=== PATIENT | female | born 1990 | race African-American/Black ===

== ENCOUNTER 2016-12-09 16:12 | Emergency (ER) | payer MEDICAID ==
[~2016-12-09] VITALS: Ht 170.2 cm; Wt 62.6 kg
[2016-12-09 17:15] LABS: Basophils # (auto) 0 uL; Basophils % (auto) 0.2 % (0.0-2.0); Eosinophils # (auto) 0.4 uL; Eosinophils % (auto) 4.7 % (0.0-7.0); Hematocrit 36.1 % (36.0-46.0); Hemoglobin 11.7 g/dL (12.2-16.2); Lymphocytes # (auto) 2.5 uL; Lymphocytes % (auto) 32.2 % (10.0-50.0); Mean Corpuscular Hemoglobin 28.1 pg (28.0-32.0); Mean Corpuscular Hgb Conc. 32.4 g/dL (32.0-36.0); Mean Corpuscular Volume 86.6 fL (80.0-100.0); Mean Platelet Volume 7.4 fL (6.9-10.8); Monocytes # (auto) 0.5 uL; Monocytes % (auto) 7.1 % (0.0-12.0); Neutrophils # (auto) 4.3 uL; Neutrophils % (auto) 55.8 % (37.0-80.0); Platelet Count (auto) 251 10^3/uL (140-450); Red Cell Distribution Width 13.4 % (11.8-14.3); White Blood Cell 7.7 10^3/uL (4.4-10.8)
[2016-12-09 17:30] LABS: Albumin 3.8 g/dL (3.4-5.0); BUN/Creatinine Ratio 15.9; Calcium 8.9 mg/dL (8.5-10.1); Potassium 3.9 mmol/L (3.5-5.1)
[2016-12-09 17:31] LABS: Bilirubin, Total 0.2 mg/dL (0.2-1.0); Total Protein 7.4 g/dL (6.4-8.2)
[2016-12-09] MEDS ORDERED: SODIUM CHLORIDE 0.9% 1,000 ML IVB ONE (21:05)
[2016-12-09] MEDS ORDERED: ONDANSETRON HCL 4 MG/2 ML VIAL IV ONE (21:15)
[2016-12-09] MEDS ORDERED: HYDROmorphone HCL 2 MG/ML VL IV ONE (21:15)
[2016-12-09 21:58] LABS: Amylase 101 U/L (25-115)
[2016-12-09 21:59] LABS: INR 0.95 (0.9-1.15); Partial Thromboplastin Time 25.8 sec (22.64-33.71); Prothrombin Time 10.3 sec (9.37-12.3)
[2016-12-09 22:58] LABS: Urine Bilirubin Negative (Negative); Urine Blood 2+ /uL (Negative); Urine Color Yellow (Yellow); Urine Glucose Normal (Normal); Urine Ketone Negative (Negative); Urine Mucus FEW (None Seen); Urine Nitrite Negative (Negative); Urine RBC 1 /hpf (0 - 4); Urine Squamous Epithelial Cell FEW /hpf (<5); Urine Urobilinogen Normal (Negative)
[2016-12-10 02:12] VITALS: BP 124/82
== END 2016-12-10 02:11 | disposition home or self-care (01) ==
LOC: ER 16:21
DX: R10.2 Pelvic and perineal pain (principal); G43.909 Migraine, unspecified, not intractable, without status migrainosus; F17.210 Nicotine dependence, cigarettes, uncomplicated; Z91.013 Allergy to seafood; Z90.49 Acquired absence of other specified parts of digestive tract; Z98.51 Tubal ligation status
CPT/HCPCS: 36415; 76830; 76856; 80053; 81001; 81025; 82150; 83690; 85025; 85610; 85730; 96361; 96374; 96375; 99285; J1170; J2405; J7030

== ENCOUNTER 2017-10-09 06:55 | Emergency (ER) | payer MEDICAID ==
[~2017-10-09] VITALS: Ht 170.2 cm; Wt 72.6 kg
[2017-10-09 07:49] LABS: Urine Pregnacy Test Negative (Negative)
[2017-10-09 07:52] LABS: Urine Bacteria FEW /hpf (None Seen); Urine Blood 2+ /uL (Negative); Urine Specific Gravity 1.019 (1.001-1.035); Urine WBC 2 /hpf (0 - 5)
[2017-10-09 08:20] LABS: Amphetamine Screen, Urine NEGATIVE (NEGATIVE); Barbiturate Scree,Urine NEGATIVE (NEGATIVE); Benzodiazephine Screen, Urine NEGATIVE (NEGATIVE); Cannabinoid Screen, Urine NEGATIVE (NEGATIVE); Cocaine Screen, Urine NEGATIVE (NEGATIVE); Opiate Scree,Urine POSITIVE (NEGATIVE); Phencyclidine Screen, Urine NEGATIVE (NEGATIVE)
[2017-10-09 10:20] VITALS: BP 115/84
[2017-10-09] MEDS ORDERED: traMADol HCL 50 MG TAB PO ONE (11:15)
== END 2017-10-09 11:52 | disposition home or self-care (01) ==
LOC: ER 06:55
DX: S62.304A Unspecified fracture of fourth metacarpal bone, right hand, initial encounter for closed fracture (principal); S09.90XA Unspecified injury of head, initial encounter; F17.210 Nicotine dependence, cigarettes, uncomplicated; Z90.49 Acquired absence of other specified parts of digestive tract; Y04.0XXA Assault by unarmed brawl or fight, initial encounter; Y93.89 Activity, other specified; Y92.89 Other specified places as the place of occurrence of the external cause; Y99.8 Other external cause status
CPT/HCPCS: 29125; 70450; 72125; 73120; 80307; 81001; 81025

== ENCOUNTER 2018-12-28 13:08 | Emergency (ER) | payer MEDICAID ==
[~2018-12-28] VITALS: Ht 167.6 cm; Wt 72.6 kg
[2018-12-28 13:19] VITALS: BP 118/79
[2018-12-28] MEDS ORDERED: ACETAMINOPHEN 650 mg PER 20 mL UD PO ONE (13:30)
[2018-12-28] MEDS ORDERED: cefTRIAXone W LIDOCAINE 1 GM IM IM ONE (15:15)
[2018-12-28] MEDS ORDERED: cefTRIAXone SOD 1,000 MG VL ONE (15:30)
== END 2018-12-28 15:49 | disposition home or self-care (01) ==
LOC: ER 13:08
DX: J06.9 Acute upper respiratory infection, unspecified (principal); J02.9 Acute pharyngitis, unspecified; F17.210 Nicotine dependence, cigarettes, uncomplicated; Z98.51 Tubal ligation status
CPT/HCPCS: 96372; 99283; J0696

== ENCOUNTER 2020-10-18 22:47 | Emergency (ER) | payer MEDICAID ==
[~2020-10-18] VITALS: Ht 165.1 cm; Wt 68.0 kg
[2020-10-18 22:56] VITALS: BP 111/72
[2020-10-19] MEDS ORDERED: KETOROLAC TROMETH 60MG/2ML VIAL IM ONE (01:45)
== END 2020-10-19 02:04 | disposition home or self-care (01) ==
LOC: ER 22:47
DX: S63.91XA Sprain of unspecified part of right wrist and hand, initial encounter (principal); F17.210 Nicotine dependence, cigarettes, uncomplicated; Z90.49 Acquired absence of other specified parts of digestive tract; Z91.013 Allergy to seafood; Y04.2XXA Assault by strike against or bumped into by another person, initial encounter; Y93.89 Activity, other specified; Y92.89 Other specified places as the place of occurrence of the external cause; Y99.8 Other external cause status
CPT/HCPCS: 73130; 96372; 99283; J1885

== ENCOUNTER 2021-02-01 07:20 | Emergency (ER) | payer MEDICAID ==
[~2021-02-01] VITALS: Ht 167.6 cm; Wt 71.7 kg
[2021-02-01 07:59] VITALS: BP 122/76
[2021-02-01] MEDS ORDERED: ACETAMINOPHEN 500 MG TAB PO ONE (08:15)
[2021-02-01] MEDS ORDERED: BACL10TA PO (09:23)
[2021-02-01] MEDS ORDERED: ACET325T82 PO (09:23)
== END 2021-02-01 09:32 | disposition home or self-care (01) ==
LOC: ER 07:20
DX: S00.83XA Contusion of other part of head, initial encounter (principal); S60.222A Contusion of left hand, initial encounter; G44.319 Acute post-traumatic headache, not intractable; F17.210 Nicotine dependence, cigarettes, uncomplicated; Z90.49 Acquired absence of other specified parts of digestive tract; Z91.013 Allergy to seafood; Y04.2XXA Assault by strike against or bumped into by another person, initial encounter; Y93.89 Activity, other specified; Y92.89 Other specified places as the place of occurrence of the external cause; Y99.8 Other external cause status
CPT/HCPCS: 70450; 70486; 73130

== ENCOUNTER 2022-12-25 09:14 | Emergency (ER) | payer MEDICAID ==
[~2022-12-25] VITALS: Ht 167.6 cm; Wt 65.1 kg
[~2022-12-25 09:14] MED LIST: ACET325T82 PO; BACL10TA PO
[2022-12-25 09:59] VITALS: BP 113/84; PULSE 92; RESP 16; TEMP 98.2; O2SAT 98
[2022-12-25] MEDS ORDERED: HYDROcodone-ACET 5/325MG TAB PO ONE (14:15)
[2022-12-25] MEDS ORDERED: HYDR-4902 PO (15:06)
== END 2022-12-25 15:13 | disposition home or self-care (01) ==
LOC: ER 09:14
DX: S00.83XA Contusion of other part of head, initial encounter (principal); R68.84 Jaw pain; F17.210 Nicotine dependence, cigarettes, uncomplicated; Z91.013 Allergy to seafood; Z98.51 Tubal ligation status; X58.XXXA Exposure to other specified factors, initial encounter; Y93.89 Activity, other specified; Y92.89 Other specified places as the place of occurrence of the external cause; Y99.8 Other external cause status
CPT/HCPCS: 70486